=== PATIENT | male | born 1960 | race Caucasian/White ===

== ENCOUNTER 2016-06-02 09:19 | Day surgery (SDC) | payer OTHER ==
[2016-06-02 10:04] VITALS: BMI 36.0
[2016-06-02] MEDS ORDERED: Propofol 10 mg/ml Inj (20 ML) ONE (11:06)
[2016-06-02] MEDS ORDERED: Simethicone 40 mg/0.6 ml Liquid (30 ml) ONE ×2 (11:16→11:17)
[2016-06-02 12:27] VITALS: TEMP 97.5
[2016-06-02 12:32] VITALS: O2SAT 99
[2016-06-02 12:37] VITALS: BP 109/67; PULSE 64; RESP 17
== END 2016-06-02 12:23 | disposition home or self-care (01) ==
LOC: C.ENDO 09:19
PROVIDERS: ATTEND Internal Medicine Gastroenterology
DX: Z12.11 Encounter for screening for malignant neoplasm of colon (principal); K64.8 Other hemorrhoids
CPT/HCPCS: 45378; J2704